=== PATIENT | female | born 1970 | race Caucasian/White ===

== ENCOUNTER → 2017-01-25 | Outpatient (CLI) | payer OTHER ==
--- NOTE | 2017-01-25 13:01 | MM ---
Reason for exam: screening (asymptomatic). Last mammogram was performed 3 years and 6 months ago. History: Family history of breast cancer in maternal aunt and breast cancer in paternal grandmother. Excisional biopsy of the right breast, 2009. Physical Findings: A clinical breast exam by your physician is recommended on an annual basis and results should be correlated with mammographic findings. MG Screening Mammo w CAD Bilateral CC and MLO view(s) were taken. Prior study comparison: July 16, 2013, bilateral digital screening mammo w/CAD. There are scattered fibroglandular densities. Previous mammotome biopsy within the right breast. There is no discrete abnormality. ASSESSMENT: Benign, BI-RAD 2 RECOMMENDATION: Routine screening mammogram of both breasts in 1 year.
== END | disposition home or self-care (01) ==
LOC: RADMAMWWP 08:39
PROVIDERS: ATTEND Obstetrics & Gynecology
DX: Z12.31 Encounter for screening mammogram for malignant neoplasm of breast (principal)

== ENCOUNTER → 2018-03-06 | Outpatient (CLI) | payer OTHER ==
--- NOTE | 2018-03-06 13:31 | CT ---
EXAMINATION TYPE: CT cervical spine wo con DATE OF EXAM: 03/06/2018 COMPARISON: CT cervical spine May 20, 2015 HISTORY: C-Spine pain per order. Headaches with pain numbness or tingling into left arm and fingers p er patient. CT DLP: 299.50 mGycm. Automated Exposure Control for Dose Reduction was Utilized. TECHNIQUE: CT scan of the cervical spine is obtained without contrast, axial images are obtained, sa gittal and coronal reformatted images are also reviewed. FINDINGS: Cervical spine is visualized in its entirety from C1 through upper thoracic levels, demonst rates satisfactory alignment without evidence of acute fracture or dislocation. Prevertebral soft ti ssue appears within normal limits. The C1-C2 articulation is within normal limits on the coronal jesús ges. Vertebral body heights and disc space heights are maintained. There is mild multilevel anterior spurring redemonstrated. Small posterior spur disc complexes effacing anterior thecal sac left C6-C7 level on sagittal image 46. Review of axial images shows the C2-C3 and C3-C4 levels to appear within normal limits. Axial images at C4-C5 level show right paracentral disc protrusion effacing anterior thecal sac, bila teral neural foramina are patent. Axial images at C5-C6 levels are felt within normal limits. Axial images at C6-C7 level show left paracentral spur disc complex effacing anterior thecal sac, arun ateral neural foramina are felt patent. Axial images at C7-T1 level are felt within normal limits. Thyroid gland is felt within normal limits. Some mild emphysematous change in lung apices is seen. IMPRESSION: Some multilevel degenerative changes of cervical spine as detailed above without signific ant change from May 20, 2015 CT.
--- NOTE | 2018-03-06 13:40 | CT ---
EXAMINATION TYPE: CT lumbar spine wo con DATE OF EXAM: 03/06/2018 12:00 PM COMPARISON: CT lumbar spine May 20, 2015 HISTORY: Lumbago per order. Low back and muscle pain for 10 years into right thigh. CT DLP: 472.00 mGycm Automated exposure control for dose reduction was used. Unenhanced CT of the lumbar spine was performed. Bone and soft tissue window settings are submitted as well as coronal and sagittal reconstructions. 5 lumbar-type vertebra are redemonstrated. Lumbar spine shows satisfactory alignment without evidence of acute fracture or dislocation. Vertebral body heights and disc space heights are maintained. No s uspicious posterior disc herniations are seen on sagittal images. No significant spurring is present. Review of axial images shows a T12-L1, L1-L2, and L2-L3 levels to remain within normal limits. Axial images at L3-L4 level redemonstrate mild facet degenerative changes mild broad disc bulge but s stephanie canal is preserved and bilateral neural foramina are patent. No significant change from prior. Axial images at L4-L5 level show mild facet degenerative changes bilaterally and mild broad disc bulg e minimally effacing anterior thecal sac, bilateral neural foramina are patent. No significant change from prior. Axial images at L5-S1 level show mild facet degenerative changes bilaterally. Mild broad disc bulge i s redemonstrated. Spinal canal is preserved. Bilateral neural foramina are patent. There is partial visualization of 3.3 x 3.0 cm thin-walled cystic lesion left upper pelvis axial imag e 87 suspect simple small ovarian cyst. Mild calcified plaque is seen in distal abdominal aorta and i liac branch vessels. IMPRESSION: Stable mild multilevel degenerative changes mid to lower lumbar spine as detailed above. Note is made of partial visualization of 3.3 cm low dense or cystic lesion in left ovary, consider pe lvic ultrasound to further evaluate and characterize. This is abnormal finding if patient is postmeno pausal, correlate clinically.
== END | disposition home or self-care (01) ==
LOC: RADCTMAIN 10:53
PROVIDERS: ATTEND Psychiatry & Neurology Neurology
DX: M47.812 Spondylosis without myelopathy or radiculopathy, cervical region (principal); M47.816 Spondylosis without myelopathy or radiculopathy, lumbar region
CPT/HCPCS: 72125; 72131

== ENCOUNTER → 2018-03-20 | Outpatient (CLI) | payer OTHER ==
--- NOTE | 2018-03-20 09:24 | CT ---
EXAMINATION TYPE: CT sinus wo con DATE OF EXAM: 03/20/2018 COMPARISON: NONE HISTORY: Chronic sinusitis CT DLP: 672 mGycm. Automated Exposure Control for Dose Reduction was Utilized. TECHNIQUE: CT scan of the sinuses is performed without contrast, axial images are obtained, coronal r eformatted images are also reviewed. FINDINGS: There is an old healed nondisplaced fracture of the maxillary spine. The frontal sinuses, m axillary sinuses, sphenoid sinuses, and mastoid air cells are well aerated. No middle ear cavity flui d is seen. External auditory canals are patent. There is a scant degree of mucosal thickening within the ethmoid sinuses. There is minimal leftward nasal septal deviation. The ostiomeatal complexes are not included. There is a small nonobstructive 5 mm right-sided Russel cell. No contra bullosa are see n. Mild inferior nasal turbinate mucosal hypertrophy is present. No polyp is identified. Osseous stru ctures are grossly intact. Evaluation of intracranial parenchyma is limited given technique. The orbi ts, extraocular muscles and lenses appear symmetric. IMPRESSION: 1. Scant amount of mucosal thickening within the ethmoid sinuses without ostiomeatal occlusion. 2. Nonocclusive small right-sided 5 mm Russel cell. 3. Mild inferior nasal turbinate mucosal hypertrophy.
== END ==
LOC: RADCTMAIN 08:50
PROVIDERS: ATTEND Otolaryngology Facial Plastic Surgery
DX: J34.9 Unspecified disorder of nose and nasal sinuses (principal); J34.3 Hypertrophy of nasal turbinates
CPT/HCPCS: 70486

== ENCOUNTER 2018-04-17 06:53 | Day surgery (SDC) | payer OTHER ==
[2018-04-16 08:57] VITALS: BMI 30.1
[~2018-04-17 06:53] MED LIST: LACTATED RINGERS 1,000 ML IV SCH
[2018-04-17 07:29] VITALS: TEMP 98.2
[2018-04-17] MEDS ORDERED: LACTATED RINGERS 1,000 ML IV ONE ×2 (07:39)
[2018-04-17] MEDS ORDERED: LIDOCAINE 1% 20 ML VIAL (10MG/ML) FOR IV START INTRADERMA ONE (07:39)
[2018-04-17] MEDS ORDERED: MIDAZOLAM 2 MG/2 ML VIAL ONE (08:15)
[2018-04-17] MEDS ORDERED: LIDOCAINE 1% INJ 10MG/ML (20 ML MDV) ONE (08:15)
[2018-04-17] MEDS ORDERED: PROPOFOL 10 MG/ML 20 ML VIAL IV ONE (08:15)
[2018-04-17 08:46] VITALS: RESP 16
--- NOTE | 2018-04-17 08:49 | P.PCN ---
Date of Procedure: 04/17/18 Procedure(s) Performed: Procedures: 1. Esophagogastroduodenoscopy and biopsy. 2. Total colonoscopy. Preoperative diagnosis: Chronic reflux symptoms and screening for colon cancer. Postoperative diagnoses: 1. Small sliding hiatal hernia with no obvious esophagitis or complicated reflux disease. 2. Mild antral gastritis. 3. Biopsies obtained from the duodenum, antrum and esophagus. 4. Normal colonoscopy. Preparation: HalfLytely prep. Sedation: Was provided by anesthesia. Brief clinical history: The patient is a 48-year-old female who is scheduled for this evaluation for screening for colon cancer age being her risk factor. There is no family history of colon cancer. The patient has no abdominal complaints, bleeding or anemia. She does have chronic reflux symptoms and she was concurrently scheduled for upper endoscopy to assess for esophagitis or complicated reflux disease or other pathology. Procedure: With the patient on her left lateral decubitus position and after informed consent and adequate sedation, I passed the Olympus-GIF 160 video upper endoscope through the cricopharyngeus down the esophagus. GE junction was around 36 cm from the incisors and there was a small sliding hiatal hernia but no obvious esophagitis or complicated reflux disease. The endoscope was then passed into the stomach which was insufflated with air and inspected in detail including the retroflex view in the cardia. There was some mottling and erythema in the antrum but no ulcers or erosions. Pyloric channel, duodenal bulb, post bulbar area and descending duodenum appeared within normal limits. Because of her symptoms, I obtained biopsies from the duodenum, antrum and esophagus then the endoscope was withdrawn and I proceeded with the colonoscopy. Perianal area did not show any fissures or fistulas. There were no masses felt on digital rectal examination. The Olympus CFQ 160L video colonoscope was then inserted in the rectum in the usual fashion and advanced to the cecum. The mucosa appeared healthy. No polyps or tumors were seen or any obvious diverticular disease or other pathology. I retroflexed the endoscope in the rectum before the endoscope was withdrawn. The patient tolerated the procedure well. Plan: The patient was reassured. Will await biopsy results. She will follow- up with you as planned and I recommended repeat colonoscopy in 10 years.
[2018-04-17 09:02] VITALS: BP 120/83; PULSE 71
== END 2018-04-17 09:23 | disposition home or self-care (01) ==
LOC: ORWHC2ENDO 06:53
DX: K21.0 Gastro-esophageal reflux disease with esophagitis (principal); K29.50 Unspecified chronic gastritis without bleeding; K44.9 Diaphragmatic hernia without obstruction or gangrene; F17.210 Nicotine dependence, cigarettes, uncomplicated; Z91.048 Other nonmedicinal substance allergy status; Z79.899 Other long term (current) drug therapy
CPT/HCPCS: 88305; 43239; J2250; J2001; J2704; G0121

== ENCOUNTER → 2018-12-06 | Outpatient (CLI) | payer OTHER ==
--- NOTE | 2018-12-06 16:01 | US ---
EXAMINATION TYPE: US pelvis complete transvag DATE OF EXAM: 12/06/2018 COMPARISON: CT lumbar spine 03/06/2018 CLINICAL HISTORY: N83.209 Cyst of Ovary. TECHNIQUE: . Transabdominal sonographic images of the pelvis were acquired. Transvaginal sonographi c images were medically necessary to better assess the following anatomy: Lt adnexa Date of LMP: About 10 years ago EXAM MEASUREMENTS: Uterus: Surgically absent Endometrial Stripe: Surgically absent Right Ovary: Surgically absent Left Ovary: Not visualized with certainty 1. Uterus: Surgically absent 2. Endometrium: Surgically absent 3. Right Ovary: Surgically absent 4. Left Ovary: Within the left adnexa, there is a cystic area visualized measuring 3.4 x 2.8 x 2.7 c m, probable left ovarian cyst vs other 5. Bilateral Adnexa: See above, right adnexa wnl 6. Posterior cul-de-sac: wnl Uterus is surgically absent. No free fluid is seen in pelvis. In the left adnexa there is 3.5 x 2.9 x 2.9 cm oval hypoechoic anechoic structure with increased through transmission. IMPRESSION: There is nonsimple 3.5 cm left ovarian cyst or cystic lesion. This is abnormal finding in patient after hysterectomy. Advise gynecology oncology referral and appropriate lab work up.
== END ==
LOC: RADUSWWP 13:38
PROVIDERS: ATTEND Family Medicine
DX: R93.49 Abnormal radiologic findings on diagnostic imaging of other urinary organs (principal); Z90.710 Acquired absence of both cervix and uterus
CPT/HCPCS: 76830; 76856

== ENCOUNTER → 2018-12-19 | Outpatient (CLI) | payer OTHER ==
--- NOTE | 2018-12-19 13:21 | MM ---
Reason for exam: screening (asymptomatic). Last mammogram was performed 1 year and 11 months ago. History: Patient is nulliparous. Family history of breast cancer in maternal aunt and breast cancer in paternal grandmother. Excisional biopsy of the right breast, 2009. Physical Findings: A clinical breast exam by your physician is recommended on an annual basis and results should be correlated with mammographic findings. MG Screening Mammo w CAD Bilateral CC and MLO view(s) were taken. Prior study comparison: January 25, 2017, bilateral MG screening mammo w CAD. December 26, 2013, mammogram, performed at [place]. The breast tissue is heterogeneously dense. This may lower the sensitivity of mammography. Previous mammotome biopsy in the right breast. There is chronic nodularity in the right breast. There is no discrete abnormality. ASSESSMENT: Benign, BI-RAD 2 RECOMMENDATION: Routine screening mammogram of both breasts in 1 year.
== END | disposition home or self-care (01) ==
LOC: RADMAMWWP 07:56
PROVIDERS: ATTEND Family Medicine
DX: Z12.31 Encounter for screening mammogram for malignant neoplasm of breast (principal)
CPT/HCPCS: 77067

== ENCOUNTER → 2019-01-17 | Outpatient (CLI) | payer OTHER ==
[2019-01-18 15:42] LABS: Hepatits C Virus RNA Not detected (Not detected); Hepatits C Virus RNA, Quant <12 IU/mL (<12); LOG HCV IU/mL <1.08 (<1.08)
== END | disposition home or self-care (01) ==
LOC: LABWHC1 15:37
PROVIDERS: ATTEND Physician Assistant
DX: B18.2 Chronic viral hepatitis C (principal)
CPT/HCPCS: 36415; 87522

== ENCOUNTER 2019-02-20 09:48 | Emergency (ER) | payer OTHER ==
[2019-02-20] MEDS ORDERED: MORPHINE SULFATE 4 MG/ML SYRINGE IVP STA (10:44)
[2019-02-20 10:52] LABS: Basophils # (A) 0.1 k/uL (0-0.2); Basophils % (A) 1 %; Eosinophils # (A) 0.2 k/uL (0-0.7); Eosinophils % (A) 3 %; HCT 46.2 % (34.0-46.0); HGB 14.8 gm/dL (11.4-16.0); Lymphocytes # (A) 2.7 k/uL (1.0-4.8); Lymphocytes % (A) 32 %; MCH 29.6 pg (25.0-35.0); MCV 92.3 fL (80.0-100.0); Mean Platelet Volume 6.9; Monocytes # (A) 0.4 k/uL (0-1.0); Monocytes % (A) 5 %; Neutrophils # (A) 4.7 k/uL (1.3-7.7); Neutrophils % (A) 57 %; Platelet Count 276 k/uL (150-450); RBC 5.01 m/uL (3.80-5.40); RDW 13.1 % (11.5-15.5); WBC 8.3 k/uL (3.8-10.6)
[2019-02-20 10:57] LABS: ALT 48 U/L (9-52); AST 25 U/L (14-36); Albumin 4.5 g/dL (3.5-5.0); Alkaline Phosphatase 80 U/L (38-126); Amylase 58 U/L (30-110); Anion Gap 8 mmol/L; Blood Urea Nitrogen 12 mg/dL (7-17); Carbon Dioxide 25 mmol/L (22-30); Chloride 107 mmol/L (98-107); Glucose 85 mg/dL (74-99); Lipase 96 U/L (23-300); Potassium 4.8 mmol/L (3.5-5.1); Sodium 140 mmol/L (137-145); Total Bilirubin 0.4 mg/dL (0.2-1.3); Total Protein 7.4 g/dL (6.3-8.2)
--- NOTE | 2019-02-20 11:29 | ED ---
Abdominal Pain HPI - General Chief Complaint: Abdominal Pain Stated Complaint: post op abd pain Time Seen by Provider: 02/20/19 10:29 Source: patient Mode of arrival: wheelchair Limitations: no limitations - History of Present Illness Initial Comments: 49-year-old female presents today for chief complaint of right lower abdominal pain. Patient states she had a recent laparoscopic left-sided oophrectomy. She states this was performed due to her having chronic pain and cysts by OBGYN as her [facility]. Patient states the surgeries were performed 02/13/2019. Patient states since the surgery she has had this burning pulling sensation in her right lower abdomen. Patient states it has been consistent since the surgery. Her partner states patient has not been taking it easy as much as she should. Patient denies any fever or chills night sweats shows any redness or opening of the incisions. Patient denies any nausea vomiting or diarrhea. Patient denies any vaginal bleeding or discharge. Patient denies chest pain or shortness of breath. Patient denies any leg swelling. Remaining review of system negative. Upon arrival patient appears well vital signs within acceptable limits. No signs of toxicity or distress. - Related Data Home Medications Medication Instructions Recorded Confirmed HYDROcodone/APAP 10-325MG [[place] 1 tab PO BID 04/13/18 02/20/19 10-325] Gabapentin [Neurontin] 300 mg PO TID 02/20/19 02/20/19 Ibuprofen [Motrin] 800 mg PO Q6H PRN 02/20/19 02/20/19 Previous Rx's Medication Instructions Recorded Amoxic-Pot Clav 875-125Mg 1 tab PO Q12HR 10 Days #20 tablet 02/20/19 [Augmentin 875-125] Allergies Allergy/AdvReac Type Severity Reaction Status Date / Time adhesive tape Allergy blisters Verified 02/20/19 10:27 skin Review of Systems ROS Statement: Those systems with pertinent positive or pertinent negative responses have been documented in the HPI. ROS Other: All systems not noted in ROS Statement are negative. Past Medical History Past Medical History: GERD/Reflux, GI Bleed, Thyroid Disorder Additional Past Medical History / Comment(s): hx thyroid disorder not taking medication at this time History of Any Multi-Drug Resistant Organisms: None Reported Past Surgical History: Cholecystectomy, Hysterectomy, Tonsillectomy Additional Past Surgical History / Comment(s): rt ovary Past Anesthesia/Blood Transfusion Reactions: No Reported Reaction Past Psychological History: Anxiety Smoking Status: Current every day smoker Past Alcohol Use History: None Reported Past Drug Use History: None Reported - Past Family History Father Family Medical History: Pulmonary Embolus General Exam - General Exam Comments Initial Comments: General: The patient is awake and alert, in no distress, and does not appear acutely ill. Eye: +3 mm pupils are equal, round and reactive to light, extra-ocular movemen ts are intact. No nystagmus. There is normal conjunctiva bilaterally. No signs of icterus. Ears, nose, mouth and throat: There are moist mucous membranes and no oral les ions. Neck: The neck is supple, there is no tenderness or JVD. Cardiovascular: There is a regular rate and rhythm. No murmur, rub or gallop is appreciated. Respiratory: Lungs are clear to auscultation, respirations are non-labored, breath sounds are equal. No wheezes, stridor, rales, or rhonchi. Gastrointestinal: Soft, non-distended, tender to palpation over the right lower incision on palpation of the abdomen, the incision appears to be healing well there is no erythema warmth or dehiscence. Remaining 2 incision visualized are erythematous there is no evidence of dehiscence. The abdomen is without masses or organomegaly noted. There is no rebound or guarding present. No CVA tender ness. Bowel sounds are unremarkable. Musculoskeletal: Normal ROM, no tenderness. Strength 5/5. Sensation intact. Radial and DP pulses equal bilaterally 2+. Neurological: A&O x 3. CN II-XII intact, There are no obvious motor or sensory deficits. Coordination appears grossly intact. Speech is normal. Skin: Skin is warm and dry and no rashes or lesions are noted. Psychiatric: Cooperative, appropriate mood & affect, normal judgment. Limitations: no limitations Course Vital Signs 02/20/19 09:51 Temperature 97.8 F Pulse Rate 77 Respiratory 20 Rate Blood Pressure 117/83 O2 Sat by Pulse 96 Oximetry Medical Decision Making - Medical Decision Making Very well-appearing 49-year-old female presenting for pain as been present since the operation. She states is in the right lower quadrant. On examination is exactly at the site of incision. Incision is non-erythematous there is no dehiscence there is no masses. There is no warmth to palpation. Laboratory studies are unremarkable. Urinalysis within normal limits no signs of infection. Patient has no leukocytosis. Hemoccult and stable. Patient has no rebounding or guarding however given patient's recent surgical status CT of the abdomen and pelvis with contrast is obtained revealing evidence of a possible developing left sigmoid diverticulitis however no other acute abnormalities. No significant free fluid. At this time we will treat patient's possibly developing diverticulitis although I do not feel this is the cause of the pain after patient's most likely pain is related to her recent operative status. He has a couple kidding process at this time. Patient was instructed to call her surgeon and follow-up in office. Patient states she does have a currently scheduled appointment for next Monday. Patient is to follow-up with primary care provider and return for worsening symptoms, or development of fever or any other concerning signs or symptoms. Patient verbalized understanding. Patient is agreeable care plan and discharged. Patient was discharged appearing well with vital signs within acceptable limits. Patient appearing well. I discussed the case with a provider Dr. Spann who is agreeable care plan as well as discharge today. - Lab Data Result diagrams: 02/20/19 10:10 02/20/19 10:10 Lab Results 02/20/19 02/20/19 02/20/19 Range/Units 10:10 10:10 10:10 WBC 8.3 (3.8-10.6) k/uL RBC 5.01 (3.80-5.40) m/uL Hgb 14.8 (11.4-16.0) gm/dL Hct 46.2 H (34.0-46.0) % MCV 92.3 (80.0-100.0) fL MCH 29.6 (25.0-35.0) pg MCHC 32.0 (31.0-37.0) g/dL RDW 13.1 (11.5-15.5) % Plt Count 276 (150-450) k/uL Neutrophils % 57 % Lymphocytes % 32 % Monocytes % 5 % Eosinophils % 3 % Basophils % 1 % Neutrophils # 4.7 (1.3-7.7) k/uL Lymphocytes # 2.7 (1.0-4.8) k/uL Monocytes # 0.4 (0-1.0) k/uL Eosinophils # 0.2 (0-0.7) k/uL Basophils # 0.1 (0-0.2) k/uL Sodium 140 (137-145) mmol/L Potassium 4.8 (3.5-5.1) mmol/L Chloride 107 (98-107) mmol/L Carbon Dioxide 25 (22-30) mmol/L Anion Gap 8 mmol/L BUN 12 (7-17) mg/dL Creatinine 0.51 L (0.52-1.04) mg/dL Est GFR (CKD-EPI)AfAm >90 (>60 ml/min/1.73 sqM) Est GFR (CKD-EPI)NonAf >90 (>60 ml/min/1.73 sqM) Glucose 85 (74-99) mg/dL Plasma Lactic Acid Ramin 0.8 (0.7-2.0) mmol/L Calcium 10.0 (8.4-10.2) mg/dL Total Bilirubin 0.4 (0.2-1.3) mg/dL AST 25 (14-36) U/L ALT 48 (9-52) U/L Alkaline Phosphatase 80 (38-126) U/L Total Protein 7.4 (6.3-8.2) g/dL Albumin 4.5 (3.5-5.0) g/dL Amylase 58 (30-110) U/L Lipase 96 (23-300) U/L Urine Color Urine Appearance (Clear) Urine pH (5.0-8.0) Ur Specific [place] (1.001-1.035) Urine Protein (Negative) Urine Glucose (UA) (Negative) Urine Ketones (Negative) Urine Blood (Negative) Urine Nitrite (Negative) Urine Bilirubin (Negative) Urine Urobilinogen (<2.0) mg/dL Ur Leukocyte Esterase (Negative) 02/20/19 Range/Units 11:25 WBC (3.8-10.6) k/uL RBC (3.80-5.40) m/uL Hgb (11.4-16.0) gm/dL Hct (34.0-46.0) % MCV (80.0-100.0) fL MCH (25.0-35.0) pg MCHC (31.0-37.0) g/dL RDW (11.5-15.5) % Plt Count (150-450) k/uL Neutrophils % % Lymphocytes % % Monocytes % % Eosinophils % % Basophils % % Neutrophils # (1.3-7.7) k/uL Lymphocytes # (1.0-4.8) k/uL Monocytes # (0-1.0) k/uL Eosinophils # (0-0.7) k/uL Basophils # (0-0.2) k/uL Sodium (137-145) mmol/L Potassium (3.5-5.1) mmol/L Chloride (98-107) mmol/L Carbon Dioxide (22-30) mmol/L Anion Gap mmol/L BUN (7-17) mg/dL Creatinine (0.52-1.04) mg/dL Est GFR (CKD-EPI)AfAm (>60 ml/min/1.73 sqM) Est GFR (CKD-EPI)NonAf (>60 ml/min/1.73 sqM) Glucose (74-99) mg/dL Plasma Lactic Acid Ramin (0.7-2.0) mmol/L Calcium (8.4-10.2) mg/dL Total Bilirubin (0.2-1.3) mg/dL AST (14-36) U/L ALT (9-52) U/L Alkaline Phosphatase (38-126) U/L Total Protein (6.3-8.2) g/dL Albumin (3.5-5.0) g/dL Amylase (30-110) U/L Lipase (23-300) U/L Urine Color Yellow Urine Appearance Clear (Clear) Urine pH 6.0 (5.0-8.0) Ur Specific [place] 1.047 H (1.001-1.035) Urine Protein Negative (Negative) Urine Glucose (UA) Negative (Negative) Urine Ketones Negative (Negative) Urine Blood Negative (Negative) Urine Nitrite Negative (Negative) Urine Bilirubin Negative (Negative) Urine Urobilinogen <2.0 (<2.0) mg/dL Ur Leukocyte Esterase Negative (Negative) Disposition Clinical Impression: Post-operative pain, Abdominal pain Disposition: HOME SELF-CARE Condition: Good Instructions (If sedation given, give patient instructions): Abdominal Pain (ED) Additional Instructions: Please use medication as discussed. Please follow-up with family doctor in the next 2 days, as well as surgeon. Call surgeon upon discharge. Please return to emergency room if the symptoms increase or worsen or for any other concerns. Prescriptions: Amoxic-Pot Clav 875-125Mg [Augmentin 875-125] 1 tab PO Q12HR 10 Days #20 tablet Is patient prescribed a controlled substance at d/c from ED?: No Referrals: Mundo Rasheed MD [Primary Care Provider] - 1-2 days Time of Disposition: 12:15
--- NOTE | 2019-02-20 11:39 | CT ---
EXAMINATION TYPE: CT abdomen pelvis w con DATE OF EXAM: 02/20/2019 HISTORY: Postoperative right lower quadrant pain. CT DLP: 692.8mGycm Automated Exposure Control for Dose Reduction was Utilized. CONTRAST: CT scan of the abdomen and pelvis is performed without oral but with IV Contrast, patient injected wi th 100 ml mL of Isovue 300. COMPARISON: None FINDINGS: LUNG BASES: Posterior dependent and linear atelectasis is present bilaterally. LIVER/GB: Cholecystectomy clips are seen. Visualized liver is hypodense relative to spleen suggesting fatty infiltration though this should be confirmed with ultrasound if desired. PANCREAS: No significant abnormality is seen. SPLEEN: No significant abnormality is seen. ADRENALS: No significant abnormality is seen. KIDNEYS: No significant abnormality is seen. BOWEL: Evaluation of bowel is suboptimal secondary to lack of enteric contrast. No suspicious small o r large bowel dilatation. Diverticula in sigmoid colon with perhaps mild adjacent fat stranding, zoya ot exclude a mild or early acute diverticulitis. Terminal ileum shows mild wall thickening. Finding c ould be product of poor distention, mild inflammatory change is not excluded. Cecum is slightly low-l cira into the right pelvis. No inflammatory change at base of cecum is noted. Appendix is not seen wi th certainty. No pneumoperitoneum. No well-formed fluid collection. UTERUS/ADNEXA: Uterus is surgically absent or markedly atrophic. LYMPH NODES: No greater than 1cm abdominal or pelvic lymph nodes are appreciated. OSSEOUS STRUCTURES: No significant abnormality is seen. OTHER: No significant additional abnormality is seen. IMPRESSION: Sigmoid colonic diverticulosis with suspicion for mild or early uncomplicated acute diver ticulitis centered left pelvis.
[2019-02-20 11:45] LABS: Appearance,Urine Clear (Clear); Bilirubin,Urine Negative (Negative); Blood,Urine Negative (Negative); Color,Urine Yellow; Glucose,Urine (UA) Negative (Negative); Ketones,Urine Negative (Negative); Leukocyte Esterase,Urine Negative (Negative); Nitrite,Urine Negative (Negative); Protein,Urine Negative (Negative); Urobilinogen,Urine <2.0 mg/dL (<2.0)
[2019-02-20 11:50] LABS: Specific Gravity,Urine 1.047 (1.001-1.035)
[2019-02-20 13:02] VITALS: BP 117/64; PULSE 69; RESP 16; TEMP 98
== END 2019-02-20 13:08 | disposition home or self-care (01) ==
LOC: EC 09:48
DX: R10.31 Right lower quadrant pain (principal); G89.18 Other acute postprocedural pain; F17.200 Nicotine dependence, unspecified, uncomplicated; Z79.891 Long term (current) use of opiate analgesic; Z79.899 Other long term (current) drug therapy; Z91.048 Other nonmedicinal substance allergy status; Z90.721 Acquired absence of ovaries, unilateral; Z90.710 Acquired absence of both cervix and uterus; Z90.49 Acquired absence of other specified parts of digestive tract
CPT/HCPCS: 36415; 80053; 82150; 83605; 83690; 85025; 81003; 74177; 99284; 96374; J2270; Q9967

== ENCOUNTER 2019-12-15 11:32 | Emergency (ER) | payer OTHER ==
[2019-12-15 11:43] VITALS: RESP 18
[2019-12-15] MEDS ORDERED: ACETAMINOPHEN TAB 500 MG TAB PO STA (11:52)
--- NOTE | 2019-12-15 11:53 | ED ---
General Adult HPI - General Chief complaint: ENT Stated complaint: Sore Throat Time Seen by Provider: 12/15/19 11:41 Source: patient, RN notes reviewed Mode of arrival: ambulatory Limitations: no limitations - History of Present Illness Initial comments: Patient is a pleasant 49-year-old female presenting to the emergency Department with complaints of sore throat. Onset of symptoms was just yesterday. Patient does have some nausea. Patient has sinus congestion and headache. Minimal cough. Patient has had 2 episodes of diarrhea. No abdominal pain. No vomiting. - Related Data Home Medications Medication Instructions Recorded Confirmed HYDROcodone/APAP 10-325MG [[place] 1 tab PO BID 04/13/18 02/20/19 10-325] Gabapentin [Neurontin] 300 mg PO TID 02/20/19 02/20/19 Ibuprofen [Motrin] 800 mg PO Q6H PRN 02/20/19 02/20/19 Previous Rx's Medication Instructions Recorded Amoxic-Pot Clav 875-125Mg 1 tab PO Q12HR 10 Days #20 tablet 02/20/19 [Augmentin 875-125] Amoxic-Pot Clav 875-125Mg 1 tab PO BID #20 tab 12/15/19 [Augmentin 875-125] Allergies Allergy/AdvReac Type Severity Reaction Status Date / Time adhesive tape Allergy blisters Verified 02/20/19 10:27 skin Review of Systems ROS Statement: Those systems with pertinent positive or pertinent negative responses have been documented in the HPI. ROS Other: All systems not noted in ROS Statement are negative. Constitutional: Denies: fever Eyes: Denies: eye pain ENT: Reports: throat pain. Denies: ear pain Respiratory: Reports: cough. Denies: dyspnea Cardiovascular: Denies: chest pain Endocrine: Denies: fatigue Gastrointestinal: Reports: diarrhea. Denies: abdominal pain Genitourinary: Denies: dysuria Musculoskeletal: Denies: back pain Skin: Denies: rash Neurological: Denies: weakness Past Medical History Past Medical History: GERD/Reflux, GI Bleed, Thyroid Disorder Additional Past Medical History / Comment(s): hx thyroid disorder not taking medication at this time History of Any Multi-Drug Resistant Organisms: None Reported Past Surgical History: Cholecystectomy, Hysterectomy, Tonsillectomy Additional Past Surgical History / Comment(s): rt ovary Past Anesthesia/Blood Transfusion Reactions: No Reported Reaction Past Psychological History: Anxiety Smoking Status: Current every day smoker Past Alcohol Use History: None Reported Past Drug Use History: None Reported - Past Family History Father Family Medical History: Pulmonary Embolus General Exam Limitations: no limitations General appearance: alert, in no apparent distress Head exam: Present: normocephalic Eye exam: Present: normal appearance, PERRL ENT exam: Present: TM's normal bilaterally, other (Mild pharyngeal erythema. Tenderness over the maxillary sinuses) Neck exam: Present: normal inspection. Absent: meningismus, lymphadenopathy Respiratory exam: Present: normal lung sounds bilaterally Cardiovascular Exam: Present: regular rate, normal rhythm GI/Abdominal exam: Present: soft. Absent: tenderness Extremities exam: Present: normal inspection Neurological exam: Present: alert Psychiatric exam: Present: normal affect, normal mood Skin exam: Present: normal color Course Vital Signs 12/15/19 11:40 Temperature 98.1 F Pulse Rate 91 Respiratory 18 Rate Blood Pressure 136/77 O2 Sat by Pulse 94 L Oximetry Medical Decision Making - Lab Data Lab Results 12/15/19 Range/Units 11:45 Group A Strep Rapid Negative (Negative) Disposition Clinical Impression: Acute sinusitis Disposition: HOME SELF-CARE Condition: Stable Instructions (If sedation given, give patient instructions): Sinusitis (ED) Additional Instructions: [id number]-eshzwnf Tylenol or Motrin as needed. Salt water gargle. [id number]-[id number] vitamin C. Return for difficulty breathing, not tolerating oral intake, worsening symptoms or other concerns. Prescription sent to [facility] in [place] Prescriptions: Amoxic-Pot Clav 875-125Mg [Augmentin 875-125] 1 tab PO BID #20 tab Is patient prescribed a controlled substance at d/c from ED?: No Referrals: Mundo Rasheed MD [Primary Care Provider] - 1-2 days Time of Disposition: 12:42
[2019-12-15] MEDS ORDERED: ONDANSETRON ODT 4 MG TAB PO STA (12:01)
[2019-12-15 12:43] VITALS: BP 127/92; PULSE 70; TEMP 98.2
== END 2019-12-15 12:52 | disposition home or self-care (01) ==
LOC: EC 11:32
DX: J01.90 Acute sinusitis, unspecified (principal); F17.200 Nicotine dependence, unspecified, uncomplicated; Z79.899 Other long term (current) drug therapy; Z91.048 Other nonmedicinal substance allergy status
CPT/HCPCS: 87081; 87430; 99283

== ENCOUNTER → 2021-11-09 | Outpatient (CLI) | payer OTHER ==
--- NOTE | 2021-11-09 14:13 | CT ---
EXAMINATION TYPE: CT orbits wo con DATE OF EXAM: 11/09/2021 COMPARISON: None HISTORY: Foreign body in left eye. CT DLP: 295 mGycm Automated exposure control for dose reduction was used. Unenhanced CT of the orbits was performed in the axial and coronal planes. Bone and soft tissue window settings are submitted for review. FINDINGS: I do not see evidence for radiopaque foreign body within the vascular structures bilaterally. Intra a nd extraconal soft tissues are within normal limits. Optic nerves are symmetric. Extraocular musculat ure is also symmetric. Surrounding soft tissues are unremarkable. Paranasal sinuses are well-aerated. IMPRESSION: NO EVIDENCE FOR RADIOPAQUE FOREIGN BODY WITHIN THE FSLKM-NO-PUTL.
== END | disposition home or self-care (01) ==
LOC: RADCTMAIN 13:32
PROVIDERS: ATTEND Ophthalmology
DX: H44.702 Unspecified retained (old) intraocular foreign body, nonmagnetic, left eye (principal)
CPT/HCPCS: 70480

== ENCOUNTER 2022-03-04 11:30 | Emergency (ER) | payer OTHER ==
[2022-03-04] MEDS ORDERED: BEBTELOVIMAB (EUA) 175 MG/2 ML VIAL IV ONE (13:30)
--- NOTE | 2022-03-04 13:57 | ED ---
General Adult HPI - General Chief complaint: Upper Respiratory Infection Stated complaint: Covid+ Time Seen by Provider: 03/04/22 13:00 Source: patient, RN notes reviewed, old records reviewed Mode of arrival: ambulatory Limitations: no limitations - History of Present Illness Initial comments: Patient is a 52-year-old female who is a tobacco user presents emergency Department with one-day symptoms of COVID-19. History eyes fatigue, mild upper respiratory symptoms including a productive cough as well as rhinorrhea. Does have positive sick contact and her . To go home test was positive and is here today to receive monoclonal antibodies. Denies any other acute complaints including chest pain, shortness breath, abdominal pain, nausea, vomiting. Denies any fevers. Has a pulse ox at home. Presents for further evaluation at this time. Patient was vaccinated for COVID-19. - Related Data Home Medications Medication Instructions Recorded Confirmed HYDROcodone/APAP 10-325MG [[place] 1 tab PO BID 04/13/18 02/20/19 10-325] Gabapentin [Neurontin] 300 mg PO TID 02/20/19 02/20/19 Ibuprofen [Motrin] 800 mg PO Q6H PRN 02/20/19 02/20/19 Previous Rx's Medication Instructions Recorded Amoxic-Pot Clav 875-125Mg 1 tab PO Q12HR 10 Days #20 tablet 02/20/19 [Augmentin 875-125] Amoxic-Pot Clav 875-125Mg 1 tab PO BID #20 tab 12/15/19 [Augmentin 875-125] Allergies Allergy/AdvReac Type Severity Reaction Status Date / Time adhesive tape Allergy blisters Verified 03/04/22 11:37 skin Review of Systems ROS Statement: Those systems with pertinent positive or pertinent negative responses have been documented in the HPI. Review of Systems: CONST: Denies fever EYES: Denies blurry vision ENT: Endorses nasal congestion C/V: Denies Chest pain RESP: Denies shortness of breath GI: Denies abdominal pain : Denies dysuria SKIN: Denies rash. MSK: Denies joint pain. NEURO: Denies headache ROS Other: All systems not noted in ROS Statement are negative. Past Medical History Past Medical History: GERD/Reflux, GI Bleed, Thyroid Disorder Additional Past Medical History / Comment(s): hx thyroid disorder not taking medication at this time History of Any Multi-Drug Resistant Organisms: None Reported Past Surgical History: Cholecystectomy, Hysterectomy, Tonsillectomy Additional Past Surgical History / Comment(s): rt ovary Past Anesthesia/Blood Transfusion Reactions: No Reported Reaction Past Psychological History: Anxiety Smoking Status: Current every day smoker Past Alcohol Use History: None Reported Past Drug Use History: None Reported - Past Family History Father Family Medical History: Pulmonary Embolus General Exam - General Exam Comments Initial Comments: General: Appears in no acute distress. HEAD: Normal with no signs of head trauma. EYES: PERRLA, EOMI, conjunctiva normal, no discharge. ENT: Hearing grossly intact, normal oropharynx. RESPIRATORY: Clear breath sounds bilaterally. No wheezes, rales, or rhonchi. No hypoxia. No respiratory distress. C/V: Regular rate and rhythm. S1 and S2 auscultated, no edema, peripheral pulses 2+ and intact throughout ABD: Abd is soft, nontender, nondistended EXT: Normal range of motion, no obvious deformity SKIN: No rashes or lesions observed on exposed skin. NEURO: Alert and oriented 4. Limitations: no limitations Course Vital Signs 03/04/22 03/04/22 11:32 14:14 Temperature 98.6 F 100.2 F H Pulse Rate 105 H 90 Respiratory 18 16 Rate Blood Pressure 120/81 130/90 O2 Sat by Pulse 96 97 Oximetry Medical Decision Making - Medical Decision Making Based on the patient's presentation and physical exam, I do believe she is experiencing a Covid 19 infection. Covid swab is also positive. I do not believe that we require further laboratory studies or imaging as his vital signs are within normal limits and stable. She consented to monoclonal antibody therapy. We discussed quarantine. We discuss obtaining a pulse oximeter. Patient will be administered monoclonal antibodies and then discharged after a p eriod of observation. Patient tolerated therapy well. I instructed the patient to follow up with their PCP in the next 3 days. I explained that the patient should return to the emergency department if they experience any worsening symptoms. Strict return precautions were discussed with the patient. The patient expressed understanding of these instructions. I answered all questions that the patient had. The patient was discharged home in good condition with their prescriptions and follow up information. - Lab Data Lab Results 03/04/22 Range/Units 11:40 Coronavirus (PCR) Detected A (Not Detectd) Disposition Clinical Impression: COVID-19 virus infection Disposition: HOME SELF-CARE Condition: Good Instructions (If sedation given, give patient instructions): COVID-19 (Coronavirus Disease 2019) (ED) Is patient prescribed a controlled substance at d/c from ED?: No Referrals: Mundo Rasheed MD [Primary Care Provider] - 1-2 days Time of Disposition: 13:45
[2022-03-04 14:14] VITALS: BP 130/90; PULSE 90; RESP 16; TEMP 100.2
== END 2022-03-04 14:25 | disposition home or self-care (01) ==
LOC: EC 11:30
DX: U07.1 COVID-19 (principal); F17.200 Nicotine dependence, unspecified, uncomplicated; F41.9 Anxiety disorder, unspecified; Z91.048 Other nonmedicinal substance allergy status
CPT/HCPCS: 87635; 99283; Q0222

== ENCOUNTER → 2022-08-15 | Outpatient (CLI) | payer OTHER ==
--- NOTE | 2022-08-16 17:03 | MM ---
Reason for Exam: Screening (asymptomatic). Last mammogram was performed 3 year(s) and 8 month(s) ago. Patient History: Menarche at age 9. Patient has no children. Hysterectomy at age 41. 2010, Excisional Biopsy on the Right side. Paternal grandmother had breast cancer. Maternal aunt had breast cancer. Mother had ovarian cancer, age 39. Risk Values: Taty 5 year model risk: 1.6%. NCI Lifetime model risk: 11.8%. Prior Study Comparison: 12/26/2013 Screening Mammogram, [place]. 01/25/2017 Bilateral Screening Mammogram, [facility]. 12/19/2018 Bilateral Screening Mammogram, [facility]. Tissue Density: The breast tissue is heterogeneously dense. This may lower the sensitivity of mammography. Findings: Analyzed By CAD. There is a new grouping of calcifications within the mid middle right breast (in approximation to a palpable region which may be somewhat more lateral within the right breast. Additional workup is recommended. Patient should return for diagnostic imaging to include magnification views as well as ultrasound of the palpable region. Overall Assessment: Incomplete: need additional imaging evaluation, BI-RAD 0 Management: Diagnostic Mammogram of the right breast. Diagnostic Breast Ultrasound of the right breast. A negative mammogram report should not preclude additional follow up of suspicious palpable abnormalities. Patient should continue monthly self breast exam. A clinical breast exam by your physician is recommended on an annual basis and results should be correlated with mammographic findings. Electronically signed and approved by: Isaac Reyes D.O. Radiologis
== END | disposition home or self-care (01) ==
LOC: RADMAMWWP 08:25
PROVIDERS: ATTEND Family Medicine
DX: Z12.31 Encounter for screening mammogram for malignant neoplasm of breast (principal); Z80.3 Family history of malignant neoplasm of breast; Z98.890 Other specified postprocedural states
CPT/HCPCS: 77063; 77067

== ENCOUNTER → 2022-08-19 | Outpatient (CLI) | payer OTHER ==
--- NOTE | 2022-08-19 09:43 | USB ---
Reason for Exam: Additional evaluation requested from abnormal screening. Patient History: Menarche at age 9. Patient has no children. Left ovary removed at age 41. Right ovary removed at age 41. Hysterectomy at age 41. Postmenopausal. 2009, Excisional Biopsy on the Right side. Paternal grandmother had breast cancer. Maternal aunt had breast cancer. Mother had ovarian cancer, age 39. Risk Values: Taty 5 year model risk: 1.6%. NCI Lifetime model risk: 11.8%. Technique: Method: Targeted. Prior Study Comparison: 01/25/2017 Bilateral Screening Mammogram, [facility]. 12/19/2018 Bilateral Screening Mammogram, [facility]. 08/15/2022 Bilateral MG 3D screening mammo w/cad, [facility]. Findings: The upper outer quadrant of the right breast, the axilla of the right breast and the retroareolar of the right breast were scanned. No solid or cystic masses are identified.. Overall Assessment: Probably benign, BI-RAD 3 Management: Diagnostic Mammogram of the right breast in 6 months. A clinical breast exam by your physician is recommended on an annual basis and results should be correlated with mammographic findings. This exam should not preclude additional follow-up of suspicious palpable abnormalities. Results were given to the patient verbally at the time of exam. Electronically signed and approved by: Keith Torre M.D. Radiologis
--- NOTE | 2022-08-19 09:46 | MM ---
Reason for Exam: Additional evaluation requested from abnormal screening. Last screening mammogram was performed less than 1 month ago. Patient History: Menarche at age 9. Patient has no children. Left ovary removed at age 41. Right ovary removed at age 41. Hysterectomy at age 41. Postmenopausal. 2009, Excisional Biopsy on the Right side. Paternal grandmother had breast cancer. Maternal aunt had breast cancer. Mother had ovarian cancer, age 39. Risk Values: Taty 5 year model risk: 1.6%. NCI Lifetime model risk: 11.8%. Prior Study Comparison: 12/26/2013 Screening Mammogram, [place]. 01/25/2017 Bilateral Screening Mammogram, [facility]. 12/19/2018 Bilateral Screening Mammogram, [facility]. 08/15/2022 Bilateral MG 3D screening mammo w/cad, [facility]. Tissue Density: Right: The breast tissue is heterogeneously dense. This may lower the sensitivity of mammography. Findings: Analyzed By CAD. Calcifications which appear to be associated with the small cyst may reflect milk of calcium calcification. Six-month follow-up is advised. Ultrasound recommended for palpable abnormality. No discrete mass visualized. Overall Assessment: Incomplete: need additional imaging evaluation, BI-RAD 0 Management: Diagnostic Breast Ultrasound of the right breast. A clinical breast exam by your physician is recommended on an annual basis and results should be correlated with mammographic findings. This exam should not preclude additional follow-up of suspicious palpable abnormalities. Results were given to the patient verbally at the time of exam. Electronically signed and approved by: Keith Torre M.D. Radiologis
== END | disposition home or self-care (01) ==
LOC: RADMAMWWP 08:40
PROVIDERS: ATTEND Family Medicine
DX: R92.8 Other abnormal and inconclusive findings on diagnostic imaging of breast (principal); Z78.0 Asymptomatic menopausal state; Z80.3 Family history of malignant neoplasm of breast; Z90.721 Acquired absence of ovaries, unilateral; Z80.41 Family history of malignant neoplasm of ovary
CPT/HCPCS: 77065; 76642; G0279; 77061

== ENCOUNTER → 2023-04-20 | Outpatient (CLI) | payer OTHER ==
[2023-04-20 11:12] LABS: Basophils # (A) 0.07 X 10*3/uL (0.00-0.10); Basophils % (A) 1.2 %; Eosinophils # (A) 0.24 X 10*3/uL (0.04-0.35); HCT 46.1 % (37.2-46.3); HGB 14.9 d/dL (12.0-15.0); Lymphocytes # (A) 2.38 X 10*3/uL (0.90-5.00); Lymphocytes % (A) 39.7 %; MCH 30.6 pg (27.0-32.0); MCHC 32.3 d/dL (32.0-37.0); MCV 94.7 FL (80.0-97.0); Mean Platelet Volume 10.8 FL (9.5-12.2); Monocytes % (A) 6.7 %; NRBC Per 100 WBC 0 X 10*3/uL (0.00-0.01); Neutrophils # (A) 2.89 X 10*3/uL (1.80-7.70); Neutrophils % (A) 48.1 %; Platelet Count 213 X 10*3/uL (140-440); RBC 4.87 X 10*6/uL (4.10-5.20); RDW 13.8 % (11.5-14.5)
[2023-04-20 11:42] LABS: % Iron Saturation 20.06 (12.00-45.00); ALT 19 U/L (8-44); AST 17 U/L (13-35); Albumin 4.2 d/dL (3.8-4.9); Albumin/Globulin Ratio 1.83 Ratio (1.60-3.17); Alkaline Phosphatase 79 U/L (41-126); Blood Urea Nitrogen 8.4 mg/dL (9.0-27.0); Calcium 9.7 mg/dL (8.7-10.3); Carbon Dioxide 25.3 mmol/L (21.6-31.8); Chloride 108 mmol/L (96-109); Chol/HDL Ratio 3.18 Ratio; Globulin 2.3 d/dL (1.6-3.3); Glucose 102 mg/dL (70-110); Iron 62 UG/DL (50-170); LDL Cholesterol,Calculated 98.6 mg/dL (0.0-131.0); Potassium 4.9 mmol/L (3.5-5.5); Rheumatoid Factor, Qnt <15 IU/mL (0-15); Sodium 144 mmol/L (135-145); T4, Free (Free Thyroxine) 1.27 ng/dL (0.80-1.80); Total Bilirubin 0.2 mg/dL (0.3-1.2); Total Iron Binding Capacity 309 UG/DL (228-460); Total Protein 6.5 d/dL (6.2-8.2); VLDL Calculation 11.14 mg/dL (5.00-40.00)
== END | disposition home or self-care (01) ==
LOC: LABWHC1 07:11
PROVIDERS: ATTEND Nurse Practitioner
DX: Z13.220 Encounter for screening for lipoid disorders (principal); M13.849 Other specified arthritis, unspecified hand; R53.83 Other fatigue
CPT/HCPCS: 36415; 80053; 80061; 82306; 82607; 82728; 82746; 83540; 83550; 84439; 84443; 85025; 86431

== ENCOUNTER → 2023-04-20 | Outpatient (CLI) | payer OTHER ==
--- NOTE | 2023-04-20 11:42 | MM ---
Reason for Exam: Follow-up at short interval from prior study. Last screening mammogram was performed 8 month(s) ago. Patient History: Menarche at age 9. Patient has no children. Left ovary removed at age 41. Right ovary removed at age 41. Hysterectomy at age 41. Postmenopausal. 2009, Excisional Biopsy on the Right side. Paternal grandmother had breast cancer. Maternal aunt had breast cancer. Mother had ovarian cancer, age 39. Risk Values: Taty 5 year model risk: 1.7%. NCI Lifetime model risk: 11.6%. Prior Study Comparison: 12/19/2018 Bilateral Screening Mammogram, [facility]. 08/15/2022 Bilateral MG 3D screening mammo w/cad, [facility]. 08/19/2022 Right MG 3D work up w/cad RT, [facility]. Tissue Density: Right: The breast tissue is heterogeneously dense. This may lower the sensitivity of mammography. Findings: Analyzed By CAD. Subareolar nodular asymmetric density becomes less defined on additional views. Regional and grouped centrally located amorphous microcalcifications remain similar for 6 months but were noted to be new at that time. Core needle biopsy and sampling is recommended. Overall Assessment: Suspicious, BI-RAD 4 Management: Stereotactic Core Biopsy of the right breast. For the centrally located amorphous calcifications. Results were given to the patient verbally at the time of exam. Electronically signed and approved by: Alberta Louis M.D. Radiologist
== END | disposition home or self-care (01) ==
LOC: RADMAMWWP 10:39
PROVIDERS: ATTEND Family Medicine
DX: N60.01 Solitary cyst of right breast (principal); Z78.0 Asymptomatic menopausal state; Z80.3 Family history of malignant neoplasm of breast
CPT/HCPCS: 77065; G0279; 77061

== ENCOUNTER → 2023-05-18 | Day surgery (SDC) | payer OTHER ==
--- NOTE | 2023-05-24 09:57 | MM ---
Risk Values: Taty 5 year model risk: 1.7%. NCI Lifetime model risk: 11.6%. Prior Study Comparison: 08/15/2022 Bilateral MG 3D screening mammo w/cad, [facility]. 08/19/2022 Right MG 3D work up w/cad RT, [facility]. 04/20/2023 Right MG 3D diag mammo w/cad RT, [facility]. Pathology Description: Location: central. Marker Left Behind. Specimen Radiograph. Calcium Found: Yes Approach: Lateral to Medial Needle Type: Eviva Cores: 7 Skin Nicks: 1 Gauge: 9 The procedure of stereotactic guided core biopsy was explained to the patient. Benefits, alternatives, and risks were discussed. An informed consent was then obtained. Timeout was performed. The shortness pathway for biopsy was chosen. Shortness pathway was lateral to medial approach. Radiology perform the localization in the procedure.. A vacuum assisted biopsy device was used to obtain 7 core samples. The patient tolerated the procedure well without any immediate complication. The patient was kept in the radiology department for short stay after the procedure and then discharged home in stable condition. Specimen: Targeted calcifications are identified in specimen mammogram. Postprocedural mammogram: Post biopsy mammogram shows the clip to appear in satisfactory position relative to the targeted area of concern on the preprocedure images. Impression: 1. Successful stereotactic core biopsy right breast. Pathology Results: Result: High risk, Intraductual papilloma high risk. RIGHT BREAST, STEREOTACTIC NEEDLE CORE BIOPSY: Sclerotic intraductal papilloma with calcifications and background fibrocystic changes. Overall Assessment: High risk Management: Surgical Consultation of the right breast. Electronically signed and approved by: Isaac Reyes D.O. Radiologis
== END ==
LOC: RADMAMWWP 11:30
PROVIDERS: ATTEND Family Medicine
DX: D24.1 Benign neoplasm of right breast (principal)
CPT/HCPCS: 88305; 19081; A4648